=== PATIENT | female | born 1980 ===

== ENCOUNTER 2021-11-29 14:38 | Emergency (ER) | payer MEDICAID ==
[2021-11-29] MEDS ORDERED: HALOPERIDOL LACTATE 5 MG/1 ML INJ IM PRN (15:32)
[2021-11-29] MEDS ORDERED: LACTATED RINGERS 1,000 ML IV ONE (15:32)
[2021-11-29] MEDS ORDERED: PANTOPRAZOLE 40 MG INJ IV ONE (15:32)
[2021-11-29] MEDS ORDERED: MIDAZOLAM 2 MG/2 ML INJ IV STA (15:37)
--- NOTE | 2021-11-29 15:37 | Emergency Department Report ---
ED General Adult HPI - General Chief complaint: Abdominal Pain Stated complaint: ABD PAIN Time Seen by Provider: 11/29/21 15:26 Source: patient, EMS ( EMS documentation not available at time of chart dictation ), RN notes reviewed Mode of arrival: Stretcher Limitations: Physical Limitation - History of Present Illness Initial comments: The patient was evaluated in the emergency department for symptoms described in the history of present illness. He/she was evaluated in the context of the global COVID-19 pandemic, which necessitated consideration that the patient might be at risk for infection with the virus that causes COVID-19. Institutional protocols and algorithms that pertain to the evaluation of patients at risk for COVID-19 are in a state of rapid change based on information released by regulatory bodies including the CDC and federal and state organizations. These policies and algorithms were followed during the patient's care in the emergency department. Please note that these policies, procedures and recommendations changed on a rapid basis. During the history and physical examination, I am chaperoned by nurse Jimmy this patient is a 41-year-old female. She is adamant that she is not . Her past medical history includes possible gastritis, and cannabis/tobacco use. The patient was seen at [facility] yesterday. She reportedly had laboratory tests, including CBC, CMP, lipase, and hCG, as well as CT scan abdomen pelvis. She has a surgical history for cholecystectomy, and emergency . The patient presents today with recurrent epigastric pain that radiates to the back, with nausea and vomiting. Her symptoms get better when she takes a hot bath or hot shower. At [facility], she was presumptively diagnosed with acute gastritis. The patient endorses possible dysuria. -: Sudden, days(s) Location: abdomen Radiation: back Consistency: constant Improves with: medication Worsens with: movement - Related Data Previous Rx's Medication Instructions Recorded Last Taken Type Metoclopramide [Reglan] 10 mg PO QID PRN #30 tablet 11/29/21 Unknown Rx Promethazine [Phenergan] 25 mg AL Q6HR PRN #15 supp.rect 11/29/21 Unknown Rx Allergies Allergy/AdvReac Type Severity Reaction Status Date / Time ibuprofen AdvReac Unknown Verified 11/29/21 14:43 ED Review of Systems ROS: Stated complaint: ABD PAIN Other details as noted in HPI Constitutional: denies: fever Eyes: denies: eye discharge ENT: denies: epistaxis Respiratory: denies: cough Cardiovascular: denies: chest pain Gastrointestinal: abdominal pain, nausea, vomiting Genitourinary: dysuria Musculoskeletal: back pain, myalgia Neurological: weakness Psychiatric: anxiety Hematological/Lymphatic: denies: easy bleeding ED Past Medical Hx - Medications Home Medications: Home Medications Medication Instructions Recorded Confirmed Last Taken Type Metoclopramide [Reglan] 10 mg PO QID PRN #30 tablet 11/29/21 Unknown Rx Promethazine [Phenergan] 25 mg AL Q6HR PRN #15 supp.rect 11/29/21 Unknown Rx ED Physical Exam - General Limitations: No Limitations, Physical Limitation General appearance: anxious, in distress, obese - Head Head exam: Present: atraumatic, normocephalic - Eye Eye exam: Present: normal appearance, EOMI. Absent: nystagmus - ENT ENT exam: Present: normal exam, normal orophraynx, mucous membranes moist, normal external ear exam - Neck Neck exam: Present: normal inspection, full ROM. Absent: tenderness, meningismus - Respiratory Respiratory exam: Present: normal lung sounds bilaterally. Absent: respiratory distress, wheezes, rales, rhonchi, stridor, decreased breath sounds - Cardiovascular Cardiovascular Exam: Present: normal rhythm, bradycardia, normal heart sounds. Absent: tachycardia, irregular rhythm, systolic murmur, diastolic murmur, rubs, gallop - GI/Abdominal GI/Abdominal exam: Present: soft, tenderness, other (There is mild diffuse abdominal tenderness.). Absent: distended, guarding, rebound, rigid, pulsatile mass - Extremities Exam Extremities exam: Present: normal inspection, full ROM, other (2+ pulses noted in the bilateral upper and lower extremities. There is no palpable cord. negative Homans sign. Muscular compartments are soft. The pelvis is stable.). Absent: pedal edema, calf tenderness - Back Exam Back exam: Present: normal inspection, muscle spasm, paraspinal tenderness. Absent: tenderness, CVA tenderness (R), CVA tenderness (L), vertebral tenderness - Neurological Exam Neurological exam: Present: alert, oriented X3, other (There is no facial droop. The tongue is midline. EOMI. 5 out of 5 strength in 4 extremities). Absent: motor sensory deficit - Psychiatric Psychiatric exam: Present: anxious - Skin Skin exam: Present: warm, dry, intact, normal color. Absent: rash ED Course Vital Signs 11/29/21 11/29/21 11/29/21 11:17 11:30 11:45 Temperature Pulse Rate 80 79 75 Respiratory 19 19 22 Rate Blood Pressure 134/95 134/95 144/95 Blood Pressure [Left] O2 Sat by Pulse 98 97 97 Oximetry 11/29/21 11/29/21 11/29/21 12:00 12:15 12:30 Temperature Pulse Rate 76 79 74 Respiratory 21 16 18 Rate Blood Pressure 144/95 129/98 129/98 Blood Pressure [Left] O2 Sat by Pulse 98 98 100 Oximetry 11/29/21 11/29/21 11/29/21 12:45 13:00 13:16 Temperature Pulse Rate 75 77 71 Respiratory 17 20 16 Rate Blood Pressure 136/93 136/93 151/94 Blood Pressure [Left] O2 Sat by Pulse 99 99 99 Oximetry 11/29/21 11/29/21 11/29/21 13:30 13:45 14:00 Temperature Pulse Rate Respiratory Rate Blood Pressure 139/93 129/95 129/95 Blood Pressure [Left] O2 Sat by Pulse 97 99 Oximetry 11/29/21 11/29/21 11/29/21 14:16 14:41 15:20 Temperature 98.4 F Pulse Rate 78 74 72 Respiratory 15 14 12 Rate Blood Pressure 129/95 Blood Pressure 156/91 [Left] O2 Sat by Pulse 100 100 Oximetry 11/29/21 11/29/21 11/29/21 15:30 15:45 16:00 Temperature Pulse Rate 59 L 63 60 Respiratory 15 16 14 Rate Blood Pressure 103/70 116/45 116/45 Blood Pressure [Left] O2 Sat by Pulse 90 100 100 Oximetry 11/29/21 11/29/21 16:16 16:30 Temperature Pulse Rate 55 L 54 L Respiratory 18 16 Rate Blood Pressure 112/65 116/45 Blood Pressure [Left] O2 Sat by Pulse 99 99 Oximetry - Reevaluation(s) Reevaluation #1: 11/29/21 16:01 Differential diagnosis, include not limited to: GERD, gastritis, hiatal hernia, pancreatitis colitis, diverticulitis, obstruction, perforated viscus, renal colic, cannabinoid hyperemesis syndrome Assessment and plan: 41-year-old female with recurrent abdominal pain, which is most likely cannabinoid hyperemesis syndrome. As she arrives with armband on her right upper extremity, and paperwork from the hospital yesterday, where she had a CT scan, and laboratory studies performed. Presumably, these tests were nonactionable. However, we have requested old medical records. We will treat the patient for presumed cannabinoid hyperemesis syndrome, and gastritis. We will treat with haloperidol, midazolam, and Protonix. Patient advised to abstain from marijuana consumption. She is currently asking for ice chips. We will check appropriate laboratory studies, EKG, and CT scan of the abdomen pelvis. We will reassess after initial data points. 11/29/21 17:52 Patient appears improved. No active vomiting. Patient specifically denies urinary symptoms. Laboratory studies reviewed and appreciated. CT scan negative for acute findings. Had reiterated to this patient that this is most likely cannabinoid hyperemesis syndrome, with possible superimposed gastritis. She was recently given discharge prescriptions for Carafate and Phenergan. She may continue Carafate, take Protonix or Pepcid [id number], she can continue Phenergan, we will also offer oral Reglan, as well as Phenergan suppositories. She may be discharged to follow-up with outpatient primary care and/or GI ED Medical Decision Making - Lab Data Result diagrams: 11/29/21 15:39 11/29/21 15:39 Vital Signs 11/29/21 11/29/21 11/29/21 11:17 11:30 11:45 Temperature Pulse Rate 80 79 75 Respiratory 19 19 22 Rate Blood Pressure 134/95 134/95 144/95 Blood Pressure [Left] O2 Sat by Pulse 98 97 97 Oximetry 11/29/21 11/29/21 11/29/21 12:00 12:15 12:30 Temperature Pulse Rate 76 79 74 Respiratory 21 16 18 Rate Blood Pressure 144/95 129/98 129/98 Blood Pressure [Left] O2 Sat by Pulse 98 98 100 Oximetry 11/29/21 11/29/21 11/29/21 12:45 13:00 13:16 Temperature Pulse Rate 75 77 71 Respiratory 17 20 16 Rate Blood Pressure 136/93 136/93 151/94 Blood Pressure [Left] O2 Sat by Pulse 99 99 99 Oximetry 11/29/21 11/29/21 11/29/21 13:30 13:45 14:00 Temperature Pulse Rate Respiratory Rate Blood Pressure 139/93 129/95 129/95 Blood Pressure [Left] O2 Sat by Pulse 97 99 Oximetry 11/29/21 11/29/21 11/29/21 14:16 14:41 15:20 Temperature 98.4 F Pulse Rate 78 74 72 Respiratory 15 14 12 Rate Blood Pressure 129/95 Blood Pressure 156/91 [Left] O2 Sat by Pulse 100 100 Oximetry 11/29/21 11/29/21 11/29/21 15:30 15:45 16:00 Temperature Pulse Rate 59 L 63 60 Respiratory 15 16 14 Rate Blood Pressure 103/70 116/45 116/45 Blood Pressure [Left] O2 Sat by Pulse 90 100 100 Oximetry 11/29/21 11/29/21 16:16 16:30 Temperature Pulse Rate 55 L 54 L Respiratory 18 16 Rate Blood Pressure 112/65 116/45 Blood Pressure [Left] O2 Sat by Pulse 99 99 Oximetry Lab Results 11/29/21 11/29/21 11/29/21 Range/Units 15:39 15:39 15:39 Hgb 13.2 (10.1-14.3) gm/dl Hct 39.4 (30.3-42.9) % Sodium 139 (137-145) mmol/L Potassium 3.8 (3.6-5.0) mmol/L Chloride 105.8 (98-107) mmol/L Carbon Dioxide 20 L (22-30) mmol/L Anion Gap 17 mmol/L BUN 7 (7-17) mg/dL Creatinine 0.7 (0.6-1.2) mg/dL Estimated GFR > 60 ml/min BUN/Creatinine Ratio 10 % Glucose 110 H (65-100) mg/dL Calcium 9.1 (8.4-10.2) mg/dL Total Bilirubin 0.80 (0.1-1.2) mg/dL AST 19 (5-40) units/L ALT 7 (7-56) units/L Alkaline Phosphatase 69 (35-129) units/L Total Protein 7.8 (6.3-8.2) g/dL Albumin 4.3 (3.9-5) g/dL Albumin/Globulin Ratio 1.2 % Lipase 28 (13-60) units/L HCG, Qual Negative (Negative) - EKG Data 11/29/21 17:04 The EKG is interpreted at 16: 23 Sinus rhythm, with a rate of 55 bpm. Normal axis, normal P wave axis. There is motion artifact. With calipers, and V2, I measure the QTC at 5 2 0 ms. There is low voltage. This is an abnormal EKG. This is not a stemi - Radiology Data Radiology results: pending, report reviewed, image reviewed CT abdomen pelvis w con INDICATION / CLINICAL INFORMATION: Acute abdominal pain and back pain 100ml of [id number] . TECHNIQUE: Axial CT images were obtained through the abdomen and pelvis after 100 cc of Omnipaque [address] scans at this location are performed using CT dose reduction for ALARA by means of automated exposure control. COMPARISON: None available. FINDINGS: LOWER CHEST: No significant abnormality LIVER: No significant abnormality GALLBLADDER/BILIARY TREE: Cholecystectomy. PANCREAS: No significant abnormality SPLEEN: No significant abnormality ADRENALS: No significant abnormality RIGHT KIDNEY / URETER: No significant abnormality LEFT KIDNEY / URETER: No acute findings. No urolithiasis or hydronephrosis. Left renal cysts, largest in the medial left upper pole measuring 3.8 cm. URINARY BLADDER: No significant a bnormality REPRODUCTIVE ORGANS: IUD in the fundal endometrium. No significant adnexal abnormality. STOMACH / BOWEL: Small bowel is normal in caliber. The colon is unremarkable. The appendix is normal in caliber. LYMPH NODES: No significant adenopathy. VASCULATURE: No significant abnormality. OTHER: No free air, free fluid, or focal fluid collection is identified. SKELETAL SYSTEM: No acute osseous findings. IMPRESSION: No acute findings of the abdomen or pelvis. Signer Name: Turner Alicea MD Signed: 11/29/2021 4:12 PM Workstation Name: [employer] Critical care attestation.: If time is entered above; I have spent that time in minutes in the direct care of this critically ill patient, excluding procedure time. ED Disposition Clinical Impression: Marijuana abuse, Acute abdominal pain Disposition: HOME / SELF CARE / HOMELESS Is pt being admited?: No Does the pt Need Aspirin: No Condition: Good Instructions: Abdominal Pain (ED), Cannabinoid Hyperemesis Syndrome Additional Instructions: Symptoms most likely coming from cannabinoid hyperemesis syndrome. Treatment is to discontinue cannabis consumption. Marijuana and cannabis are fat-soluble, and will therefore remain in fatty tissues for up to 6 weeks after last ingestion. Patient may experience recurrent symptoms after being discharged. Avoid consumption of Motrin, ibuprofen, Naprosyn, Aleve, heavy and spicy foods, alcohol, tobacco, smoke products. Specifically counseled to avoid all first and secondhand exposure of marijuana containing products. May take [id number] Tylenol, Pepcid, Protonix or omeprazole as needed for upper abdominal pain. May also take prescribed Carafate and Phenergan from [facility] yesterday, oral, oral Reglan medication as prescribed today. Take the Phenergan suppository as needed for intractable nausea and vomiting, not relieved by the aforementioned m edications. Continue to take a hot bath and hot shower as often as as needed for physical pain relief, and may also purchase [id number] Tabasco or hot sauce, and applied to the anterior abdominal wall, to assist with symptoms. We recommend follow-up with an outpatient primary care doctor or GI physician within the next week. Please return to the emergency room right away with new pain, worsened pain, migration of pain, projectile vomiting, change in mental status, confusion, inability tolerate liquid feeds, new, worsened or different symptoms not present on the initial emergency room evaluation Referrals: [facility] [Provider Group] - 3-5 Days [facility] [Provider Group] - 3-5 Days Forms: Work/School Release Form(ED)
[2021-11-29 16:20] LABS: Hematocrit 39.4 % (30.3-42.9); Hemoglobin 13.2 gm/dl (10.1-14.3)
[2021-11-29 16:31] LABS: Alanine Aminotransferase 7 units/L (7-56); Albumin 4.3 g/dL (3.9-5); Blood Urea Nitrogen 7 mg/dL (7-17); Calcium 9.1 mg/dL (8.4-10.2); Hemolysis Index 4
[2021-11-29 16:32] LABS: BUN/Creatinine Ratio 10
--- NOTE | 2021-11-29 17:17 | Cat Scan Report ---
CT abdomen pelvis w con INDICATION / CLINICAL INFORMATION: Acute abdominal pain and back pain 100ml of [id number] . TECHNIQUE: Axial CT images were obtained through the abdomen and pelvis after 100 cc of Omnipaque [address] scans at this location are performed using CT dose reduction for ALARA by means of automated exposure control. COMPARISON: None available. FINDINGS: LOWER CHEST: No significant abnormality LIVER: No significant abnormality GALLBLADDER/BILIARY TREE: Cholecystectomy. PANCREAS: No significant abnormality SPLEEN: No significant abnormality ADRENALS: No significant abnormality RIGHT KIDNEY / URETER: No significant abnormality LEFT KIDNEY / URETER: No acute findings. No urolithiasis or hydronephrosis. Left renal cysts, largest in the medial left upper pole measuring 3.8 cm. URINARY BLADDER: No significant abnormality REPRODUCTIVE ORGANS: IUD in the fundal endometrium. No significant adnexal abnormality. STOMACH / BOWEL: Small bowel is normal in caliber. The colon is unremarkable. The appendix is normal in caliber. LYMPH NODES: No significant adenopathy. VASCULATURE: No significant abnormality. OTHER: No free air, free fluid, or focal fluid collection is identified. SKELETAL SYSTEM: No acute osseous findings. IMPRESSION: No acute findings of the abdomen or pelvis. Signer Name: Turner Alicea MD Signed: 11/29/2021 5:12 PM Workstation Name: [email or web address]
[2021-11-29 18:16] VITALS: BP 128/80
--- NOTE | 2021-12-01 19:26 | Electrocardiograph Report ---
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
--- NOTE | 2021-12-01 21:40 | Electrocardiograph Report ---
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
== END 2021-11-29 18:18 | disposition home or self-care (01) ==
LOC: ED 14:38
DX: R10.13 Epigastric pain (principal); F12.10 Cannabis abuse, uncomplicated
CPT/HCPCS: 36415; 74177; 80053; 83690; 84703; 85014; 85018; 93005; 96361; 96372; 96374; 99284; C9113; J1630; J7120; Q9967